=== PATIENT | male | born 1995 | race Two or more races ===

== ENCOUNTER 2024-02-05 04:02 | Day surgery (SDC) | payer OTHER ==
[2024-02-01 12:24] VITALS: BMI 29.9
[2024-02-05] MEDS ORDERED: BUPIVACAINE HCL/PF 0.5% (5MG/ML) 10 ML VIAL ONE ×2 (12:23→14:41)
[2024-02-05] MEDS ORDERED: LIDOCAINE HCL 1%, 10 MG/ML (20ML VIAL) ONE (12:23)
[2024-02-05] MEDS ORDERED: oxyCODONE HCL 5 MG TABLET PO PRN (14:09)
[2024-02-05] MEDS ORDERED: PROMETHAZINE HCL 25 MG/1 ML VIAL IVPB PRN (14:09)
[2024-02-05] MEDS ORDERED: ONDANSETRON 4 MG/2 ML VIAL IVPUSH PRN (14:09)
[2024-02-05] MEDS ORDERED: LACTATED RINGERS SOLUTION 1,000 ML IV SCH (14:15)
[2024-02-05] MEDS ORDERED: FENTANYL CITRATE/PF 50 MCG/ML VIAL ONE (14:28)
[2024-02-05] MEDS ORDERED: MIDAZOLAM HCL 2 MG/2 ML SINGLE DOSE VIAL ONE (14:28)
[2024-02-05] MEDS ORDERED: SODIUM CHLORIDE 0.9% P/F 10 ML VIAL IJ ONE (14:29)
[2024-02-05] MEDS ORDERED: ceFAZolin SODIUM 1 GM VIAL ONE (14:29)
[2024-02-05] MEDS ORDERED: LIDOCAINE HCL/PF 2% SDV 5ML VIAL ONE (14:41)
[2024-02-05] MEDS: ceFAZolin SODIUM 1 GM VIAL IVPB ONE (14:45)
[2024-02-05] MEDS ORDERED: DEXAMETHASONE SOD PHOSPHATE 4 MG/1 ML VIAL ONE (14:58)
[2024-02-05] MEDS ORDERED: ONDANSETRON 4 MG/2 ML VIAL ONE (14:58)
[2024-02-05] MEDS ORDERED: KETOROLAC TROMETHAMINE 30 MG/1 ML VIAL ONE (15:11)
[2024-02-05] MEDS ORDERED: GLYCOPYRROLATE 0.2 MG/1 ML VIAL ONE (15:20)
[2024-02-05] MEDS ORDERED: BACITRACIN ZINC 15 GM TUBE TOPICAL OINTMENT ONE (15:41)
[2024-02-05] MEDS: BUPIVACAINE HCL/PF 0.5% (5MG/ML) 10 ML VIAL IJ ONE (15:51)
[2024-02-05] MEDS: LIDOCAINE HCL 2% (50ML VIAL) INF ONE (15:51)
[2024-02-05 16:57] VITALS: RESP 18
[2024-02-05 17:45] VITALS: BP 136/90; PULSE 59; TEMP 97.8
== END 2024-02-05 17:40 | disposition home or self-care (01) ==
LOC: JASU-SURG 04:02
PROVIDERS: ATTEND Urology
PROC: 0VBQ0ZZ Excision of Bilateral Vas Deferens, Open Approach (ICD-10-PCS; principal; 2024-02-05 12:00)
DX: Z30.2 Encounter for sterilization (principal)
CPT/HCPCS: 88302-TC; 94760